=== PATIENT | female | born 1980 ===

== ENCOUNTER 2023-07-31 11:29 | Outpatient (CLI) | payer OTHER, SELFPAY ==
--- NOTE | ~2023-07-31 | US_ITS ---
EXAMINATION: US pelvic complete DATE: 07/31/2023 11:46 INDICATION: Right lower quadrant abdominal pain. TECHNIQUE: Multiple transabdominal sonographic images of the pelvis were obtained. COMPARISON: None. FINDINGS: The uterus measures 9.5 x 3.8 x 5.2 cm. There is no free fluid in the pelvis. The endometrial complex measures 1.1 cm in thickness. The right ovary measures 2.8 x 2.2 x 2.8 cm. The left ovary measures 3 .5 x 2.0 x 3.0 cm. There is normal vascular flow in the ovaries. IMPRESSION: 1. Normal pelvis. Reviewed, dictated and finalized at location A. IMPRESSION: 1. Normal pelvis.
== END 2023-07-31 11:30 ==
PROVIDERS: PCP Nurse Practitioner Women's Health; Visit Provider Nurse Practitioner Women's Health
DX: R10.2 Pelvic and perineal pain (principal); R10.31 Right lower quadrant pain
CPT/HCPCS: 76856